=== PATIENT | female | born 1965 | race Caucasian/White ===

== ENCOUNTER 2019-07-24 06:35 | Inpatient (IN) | payer BC ==
[2019-07-22 18:02] LABS: BASOPHILS % (AUTO) 0.1 % (0.0-2.0); EOSINOPHILS % (AUTO) 0.5 % (0.0-4.0); HEMATOCRIT 31.9 % (36-48); HEMOGLOBIN 10.4 g/dL (12.0-16.0); LYMPHOCYTES # (AUTO) 2.7 K/uL (1.0-5.5); LYMPHOCYTES % (AUTO) 32.4 % (20.5-51.5); MEAN CORPUSCULAR HEMOGLOBIN 28 pg (27-31); MEAN CORPUSCULAR HGB CONC 33 % (32-36); MEAN CORPUSCULAR VOLUME 86 fL (79.0-98.0); MONOCYTES # (AUTO) 0.5 K/uL (0.0-1.0); MONOCYTES % (AUTO) 6.5 % (1.7-9.3); NEUTROPHILS % (AUTO) 60.5 % (40.0-70.0); PLATELET COUNT (AUTO) 277 K/uL (130-430); RED BLOOD CELL COUNT(AUTO) 3.73 MIL/uL (4.2-6.2); WHITE BLOOD COUNT (AUTO) 8.3 K/uL (4.8-10.8)
[2019-07-22 18:30] LABS: ALBUMIN 3.8 g/dL (3.4-4.8); CALCIUM 8.3 mg/dL (8.4-11.0); CREATININE 0.59 mg/dL (0.55-1.30); POTASSIUM 3.9 mmol/L (3.5-5.1); TOTAL BILIRUBIN 0.2 mg/dL (0.0-1.0)
[~2019-07-24] VITALS: Ht 157.5 cm; Wt 75.3 kg
[2019-07-24] MEDS ORDERED: LEVO25TA2 PO (07:11)
[2019-07-24] MEDS ORDERED: CEFAZOLIN 2 GM IVPB PREMIX 50 ML IV ONE (07:15)
[2019-07-24] MEDS ORDERED: GLYCOPYRROLATE 0.2 MG/ML VIAL IJ ONE (07:30)
[2019-07-24] MEDS ORDERED: fentaNYL CITRATE/PF 100 MCG/2 ML AMP IVP ONE (07:30)
[2019-07-24] MEDS ORDERED: SEVOFLURANE 15 MIN GAS INH ONE (07:30)
[2019-07-24] MEDS ORDERED: PHENYLEPHRINE HCL 10 MG/ML VIAL (NEOSYNEPHRINE) IV ONE (07:30)
[2019-07-24] MEDS ORDERED: NS IRRIG SOLN 1000 ML IR ONE (07:30)
[2019-07-24] MEDS ORDERED: LR 1,000 ML IV.SOLN IV ONE (07:30)
[2019-07-24] MEDS ORDERED: ROCURONIUM BROMIDE 10 MG/ML (ZEMURON) IV ONE (07:30)
[2019-07-24] MEDS ORDERED: MIDAZOLAM HCL 5 MG/5 ML VIAL IVP ONE (07:30)
[2019-07-24] MEDS ORDERED: PROPOFOL 200MG/ 20ML VIAL (DIPRIVAN) IV ONE (07:30)
[2019-07-24] MEDS ORDERED: THROMBIN (BOVINE) 5000 UNITS/ VIAL TP ONE (07:40)
[2019-07-24] MEDS ORDERED: METOCLOPRAMIDE HCL 10 MG/2 ML VIAL IVP PRN (08:45)
[2019-07-24] MEDS ORDERED: LR 500 ML IV SCH (08:45)
[2019-07-24] MEDS ORDERED: HYDROmorphone 1 MG INJ. 1 MG/ML AMPUL IVP PRN ×2 (08:45)
[2019-07-24] MEDS ORDERED: KETOROLAC TROMETHAMINE 30 MG VIAL IVP PRN (08:45)
[2019-07-24] MEDS ORDERED: ePHEDrine sulfate 50 MG/ML VIAL IVP PRN (08:45)
[2019-07-24] MEDS ORDERED: ONDANSETRON HCL 4 MG/2 ML VIAL IVP PRN (08:45)
[2019-07-24] MEDS: HYDROmorphone 1 MG INJ. 1 MG/ML AMPUL ONE ×4 (08:50→09:50)
[2019-07-24] MEDS ORDERED: KETOROLAC TROMETHAMINE 30 MG VIAL ONE (09:07)
--- NOTE | 2019-07-24 10:10 | NUR ---
Note Pt arrived on floor via bed from PACU. vital signs WNL. No SOB/reps distress or severe abdominal pain/discomfort. IV in left wrist intact and patent infusing IVF's well. Payne catheter intact and draining. Abdominal incision dressing CDI and pt has lon-pad. No needs noted. Pt and her daughter were oriented to room and nursing routines and procedures. Call light explained and questions/concerns were answered at this time.
[2019-07-24] MEDS ORDERED: GLYCOPYRROLATE 0.2 MG/ML VIAL ONE (10:11)
[2019-07-24 10:15] VITALS: BP_SYST 129
[2019-07-24] MEDS: HYDROmorphone 2 MG/ML VIAL IVP PRN ×2 (13:44→19:52)
[2019-07-24] MEDS: ONDANSETRON HCL 4 MG/2 ML VIAL IVP PRN ×2 (13:44→19:52)
--- NOTE | 2019-07-24 13:45 | NUR ---
Note Received orders from Dr David on medications and diet. Pt's at bedside. Pt received Dilaudid 2mg IVP and Zofran IVP at this time as well. Pt's admission assessment was completed. Abdominal dressing CDI at this time. IVF's infusing well through left wrist IV site. Call light within reach.
[2019-07-24 13:54] VITALS: BP_SYST 120
[2019-07-24 16:53] VITALS: BP_SYST 107
--- NOTE | 2019-07-24 18:30 | NUR ---
Note Pt sitting up in bed eating her clear liquids dinner tray. No SOB/resp distress or abdominal pain/discomfort noted at this time. Pt was checked on q1' and PRN all shift for needs and care. IV in left wrist intact and patent infusing IVF's well. Payne catheter intact and draining. Abdominal dressing CDI at this time. No needs noted. Call light within reach.
[2019-07-24 19:00] VITALS: BP_SYST 105
--- NOTE | 2019-07-24 19:15 | NUR ---
change of shift.pt.presents s/p surgery:07/24/19.per ;t:veronica/bso.dsg intact.no drainage.no drains.iv access intact; patent;iv fluids infusing.diet;clear liquids status.call light/telephone placed w/in reach of the pt.language barrier extant; pt's primary language khmer.i am to attend to the pt;khmer.
--- NOTE | 2019-07-24 19:30 | NUR ---
pt.requested medication;pain.nausea.i have administered;dilaudid;2mg ivp;to re-asses the efficacy of the pain medication per pain mgx protocol.i have administered zofran:4mg ivp;to re-assess the efficacy of the medication.pt.had stated she presents acid reflux:no medication is ordered to page re;medication:acid reflux;i have apprised the necessity to page .
[2019-07-24 20:00] VITALS: BP_SYST 105
--- NOTE | 2019-07-24 20:00 | NUR ---
pt.assessed.v/s assessed values w/in normal limits.pt.assessed for cleanliness.pt.repositioned.iv fluids administration completed;disconnected from the iv access:iv acces locked.barajas cath intact;patent:urine content present.pt.stated she is comfortable post the administration:dilaudid/zofran.;t has yet to return the page.i have apprised the pt. that i may provide snacks/beverages w/in the shift w/in clear liquids parameters.no requests posited@this hour.call light/telephone w/in reach of the pt.o2-sat%=98%.@room air.
--- NOTE | 2019-07-24 22:00 | NUR ---
pt assessed.pt.assessed for cleanliness.pt.repositioned.barajas cath intact;patent;urine content present.general status stable. respiratory status stable;unlabored;02-sat%=98%.call light/telephone placed w/in reach of the pt.
[2019-07-24] MEDS ORDERED: MAG-AL HYDROX/SIMETH 30 ML UDC PO PRN (22:15)
[2019-07-24] MEDS ORDERED: MILK OF MAGNESIA 30 ML UDC PO PRN (22:15)
[2019-07-25] VITALS: BP_SYST 105
--- NOTE | 2019-07-25 | NUR ---
pt.assessed.v/s assessed:values w/in normal limits.no c/o pain,nausea.pt.assessed for cleanliness.pt.repositioned. barajas cath intact;patent:urine content present.o2-sat%=94%;unlabored.call light/telephone placed w/in reach of the pt.
[2019-07-25] MEDS: HYDROmorphone 2 MG/ML VIAL IVP PRN ×2 (00:25→05:49)
[2019-07-25] MEDS: ONDANSETRON HCL 4 MG/2 ML VIAL IVP PRN (00:30)
--- NOTE | 2019-07-25 00:30 | NUR ---
pt.assessed.pt.requested medication;pain,nausea,acid reflux.i have administered:dilaudid;2mg ivp;to re-assess the efficacy of the pain medication per pain mgx protocol.i have administered zofran;4mg ivp;to re-assess the efficacy of the medication. i have administered mylanta;30ml po;acid reflux.to re-assess the efficacy of the mylanta.no additional requests posited@this hour.
--- NOTE | 2019-07-25 02:00 | NUR ---
pt.assessed.pt.presents quiescent affect;calm,somnolent.general status stable.respiratory status stable.pt.assessed for cleanliness.pt.repositioned.barajas cath intact;patent:urine content present.call light/telephone placed w/in reach of the pt.
--- NOTE | 2019-07-25 04:00 | NUR ---
pt.assessed.pt.presents quiescent affect;calm,somnolent.pt.assessed for cleanliness.pt.repositioned. no c/o pain,nausea. general status stable.respiratory status stable;unlabored.call light/telephone placed w/in reach of the pt.
--- NOTE | 2019-07-25 06:21 | NUR ---
pt.assessed.pt.had requested medication;pain.i have administered:dilaudid;2mg ivp.no additional requests posited@this hour.no c/o nausea,acid reflux.call light/telephone w/in reach of the pt.
--- NOTE | 2019-07-25 07:30 | NUR ---
INITIAL NOTE PT RESTING QUIETLY IN BED, NO ACUTE DISTRESS NOTED. BREATHING EVEN AND UNLABORED. SCDS IN PLACE. CALL LIGHT WITHIN REACH, BED IN LOW AND LOCKED POSITION WITH BED ALARM ON.
[2019-07-25 08:00] VITALS: BP_SYST 133
--- NOTE | 2019-07-25 10:20 | NUR ---
Chuck TILLMAN. AT BEDSIDE EXAMINING PT. INFORMED MD THAT PT HAS NOT PASSED GAS, HAS MODERATE BLEEDING. INFORMED MD THAT PT DOES NOT LIKE THE DILAUDID AND REQUESTING FOR SOMETHING LESS POTENT. MD TO DISCHARGE PT TOMORROW MORNING. NEW ORDERS RECEIVED. VERIFIED WITH READ BACK.
[2019-07-25] MEDS ORDERED: BISACODYL 5 MG TABLET.DR (DULCOLAX) PO PRN (10:30)
--- NOTE | 2019-07-25 11:30 | NUR ---
RN ROUNDS PT AMBULATING, PAIN CONTROLLED AT THIS TIME. PT STATES SHE STILL HAS NOT PASSED GAS
[2019-07-25] MEDS: IBUPROFEN 800 MG TABLET PO PRN ×2 (11:48→16:07)
[2019-07-25 12:00] VITALS: BP_SYST 126
--- NOTE | 2019-07-25 12:21 | NUR ---
Nutrition Update Miquel Scale 17 noted. Pt admitted for pelvic pain and perineal pain Diet: Full Liquid BMI: 30.4 kg/m2 RD to follow per nutrition care standards.
[2019-07-25] MEDS: METOCLOPRAMIDE HCL 10 MG/2 ML VIAL IVP SCH ×3 (13:24→21:33)
--- NOTE | 2019-07-25 13:37 | NUR ---
RN ROUNDS PT SITTING IN BEDSIDE CHAIR. AT BEDSIDE. PT STATES SHE FEELS LIKE SHE WANTS TO PAS GAS BUT HAS NOT PASSED ANY YET. PAIN IS AT A 5/10. PT REFUSE DILAUDID PRN, SHE WILL CALL ME IF SHE CHANGES HER MIND.
--- NOTE | 2019-07-25 16:12 | NUR ---
RN ROUNDS PT SITTING UP IN BED. PT COMPLAINING OF MILD PAIN 08/17. EDUCATED PT ON USES AND SIDE EFFECTS OF MOTRIN. PT VERBALIZED UNDERSTANDING. PRN MOTRIN ADMINISTERED. PT VERBALIZED SHE WAS ABLE TO PASS VERY LITTLE GAS.
[2019-07-25 16:38] VITALS: BP_SYST 116
--- NOTE | 2019-07-25 19:30 | NUR ---
OPENING NOTE RECEIVED CARE OF PT AND SBAR REPORT. PT RESTING QUIETLY IN BED WITH PT'S DAUGHTER AT BEDSIDE. NO S/S OF ACUTE DISTRESS NOTED. PT REPORTS PAIN BEING AT A TOLERABLE LEVEL. BREATHING EVEN AND UNLABORED TO ROOM AIR. IV IS SALINE LOCKED. SCDS IN PLACE. POC DISCUSSED, PT VERBALIZED UNDERSTANDING. CALL LIGHT WITHIN REACH, BED IN LOW AND LOCKED POSITION WITH BED ALARM ON.
--- NOTE | 2019-07-25 19:54 | NUR ---
CLOSING NOTE PT SITTING UP IN BED. DAUGHTER AT BEDSIDE. PAIN CONTROLLED AT THIS TIME. IV SALINE LOCKED. SCD'S OFF AT THIS TIME. CALL LIGHT WITHIN REACH, BED IN LOW AND LOCKED POSITION. EDUCATED PT ON SAFETY AND USE OF BED ALARM. PT VERBALIZED UNDERSTANDING. PT REFUSING BED ALARM AT THIS TIME. ALL NEEDS ME THROUGHOUT SHIFT. PT CARE ENDORSED TO CAKE DECORATOR RN.
[2019-07-25 20:00] VITALS: BP_SYST 115
--- NOTE | 2019-07-25 21:33 | NUR ---
REGLAN SCHEDULED REGLAN ADMINISTERED ORDERED. MEDICATION INDICATION AND POTENTIAL SIDE EFFECTS DISCUSSED. PT VERBALIZED UNDERSTANDING. SAFETY MAINTAINED. WILL MONITOR.
--- NOTE | 2019-07-25 22:48 | NUR ---
AMBULATED TO RESTROOM PT AMBULATED TO RESTROOM WITH STEADY GAIT. PT RETURNED TO BED SAFELY. PT TOLERATED ACTIVITY WELL. BREATHING IS EVEN AND UNLABORED TO ROOM AIR. ALL NEEDS MET. SAFETY PRECAUTIONS MAINTAINED. WILL MONITOR.
[2019-07-26 00:10] VITALS: BP_SYST 128
[2019-07-26] MEDS: IBUPROFEN 800 MG TABLET PO PRN ×2 (00:10→08:57)
--- NOTE | 2019-07-26 00:10 | NUR ---
MOTRIN PT REPORTING MILD ABDOMINAL PAIN. MOTRIN 800 MG PO ADMINISTERED PER PT REQUEST. MEDICATION AND POTENTIAL SIDE EFFECTS EXPLAINED. PT VERBALIZED UNDERSTANDING. VSS. ALL NEEDS MET. SAFETY PRECAUTIONS MAINTAINED. WILL MONITOR.
--- NOTE | 2019-07-26 04:45 | NUR ---
AM CARE PT PROVIDED TOOTHBRUSH, TOOTHPASTE AND MOUTHWASH. PT ABLE TO INDEPENDENTLY BRUSH TEETH. PT AMBULATED AROUND ROOM FOR SEVERAL MINUTES, PT TOLERATED ACTIVITY WELL. NO S/S OF DISTRESS. PT RETURNED TO BED, SCD'S WERE REATTACHED. SAFETY PRECAUTIONS MAINTAINED. WILL MONITOR.
--- NOTE | 2019-07-26 06:46 | NUR ---
CLOSING NOTES PT RESTING IN BED, NO S/S OF ACUTE DISTRESS, BREATHING IS UNLABORED TO ROOM AIR. PT HAD TWO BOWEL MOVEMENTS LAST NIGHT, PAIN HAS BEEN CONTROLLED THROUGHOUT SHIFT. SAFETY MAINTAINED. WILL ENDORSE TO DAY SHIFT RN.
--- NOTE | 2019-07-26 07:30 | NUR ---
INITIAL NOTE PT AWAKE, RESTING IN BED, PAIN CONTROLLED AT THIS TIME. SCD'S IN PLACE. CALL LIGHT WITHIN REACH, BED IN LOW AND LOCKED POSITION. EDUCATED PT ON SAFETY AND USE OF BED ALARM. PT VERBALIZED UNDERSTANDING. PT REFUSING BED ALARM AT THIS TIME.
[2019-07-26 08:00] VITALS: BP_SYST 125
--- NOTE | 2019-07-26 08:30 | NUR ---
DR. GARFIELD HERRERA AT BEDSIDE EXAMINING PT. INFORMED MD THAT PT HAS HAD A BOWEL MOVEMENT. MD TO DISCHARGE PT HOME. PT RECEIVED PRESCRIPTIONS ALREADY. PT CLEARED TO GO HOME. VERIFIED WITH READ BACK.
[2019-07-26 08:43] VITALS: BP_SYST 125
[2019-07-26] MEDS: METOCLOPRAMIDE HCL 10 MG/2 ML VIAL IVP SCH (08:57)
--- NOTE | 2019-07-26 09:30 | NUR ---
DISCHARGE NOTE DISCHARGE PACKET AND INSTRUCTIONS WITH PT. ALL BELONGINGS WITH PT. IV CATHETER REMOVED. CATHETER INTACT. NO BLEEDING. [facility] BAND REMOVED. PAIN CONTROLLED AT THIS TIME. EDUCATED PT ON SAFETY AND USE OF WHEELCHAIR ESCORT. PT VERBALIZED UNDERSTANDING, PT REFUSING WHEELCHAIR ESCORT. AT BEDSIDE. PT AMBULATES WITH STEADY GAIT. ESCORTED PT TO [facility] P[facility]ING [facility]. TO TAKE PT HOME VIA PRIVATE AUTO.
== END 2019-07-26 09:30 | disposition home or self-care (01) | DRG 743 ==
LOC: UNDOADMOB 06:35 → SMU 06:35 → INTOOBSV 06:35 → SMU 06:37 → PREOBSVTOIN 11:03 → SMU 11:22 → UNDODISOB 07-26 09:30
PROVIDERS: ADMIT Obstetrics & Gynecology; ATTEND Obstetrics & Gynecology
PROC: 0UT60ZZ Resection of Left Fallopian Tube, Open Approach (ICD-10-PCS; 2019-07-24)
PROC: 0UT10ZZ Resection of Left Ovary, Open Approach (ICD-10-PCS; 2019-07-24)
PROC: 0UT90ZZ Resection of Uterus, Open Approach (ICD-10-PCS; principal; 2019-07-24 07:30)
DX: N83.202 Unspecified ovarian cyst, left side (principal); G89.29 Other chronic pain; E03.9 Hypothyroidism, unspecified
CPT/HCPCS: 36415; 71046-TC; 80053; 85025; 86886; 86900; 86901; 87081; 88307; 93005; G0378; J0690; J1170; J1885; J2250; J2370; J2405; J2704; J2765; J3010; J3490; J7120